=== PATIENT | male | born 1995 | race Caucasian/White ===

== ENCOUNTER 2016-07-25 19:51 | Emergency (ER) | payer SELFPAY ==
[2016-07-25 20:43] VITALS: BP 142/73
--- NOTE | 2016-07-25 21:28 | ED ---
GI/ HPI - HPI Summary HPI Summary: 20 yr old male with right testicular pain, much worse past two days and he has a lump in his testicle. The patient states that he has had pain intermittently for past year. His father had testicular cancer per this patient. His pain is 6 /10, localized to the right testicle. He states also slept with a new partner recently. Denies discharge or dysuria. - History of Current Complaint Chief Complaint: UCGU Time Seen by Provider: 07/25/16 21:17 Stated Complaint: personal - Allergy/Home Medications Allergies/Adverse Reactions: Allergies Allergy/AdvReac Type Severity Reaction Status Date / Time No Known Allergies Allergy Verified 04/03/16 16:27 PMH/Surg Hx/FS Hx/Imm Hx - Surgical History Surgery Procedure, Year, and Place: HERNIA--2017 Infectious Disease History: No Infectious Disease History: Denies: Traveled Outside the [place] in Last 30 Days - Family History Known Family History: Positive: Other - testicular cancer - Social History Alcohol Use: Rare Substance Use Type: Reports: None Smoking Status (MU): Former Smoker Type: Smokeless Tobacco Amount Used/How Often: 3 CANS PER WK Length of Time of Smoking/Using Tobacco: 8 YRS Review of Systems Negative: Fever, Chills Positive: pain - right testicle. Negative: dysuria, frequency All Other Systems Reviewed And Are Negative: Yes Physical Exam Triage Information Reviewed: Yes Vital Signs On Initial Exam: Initial Vitals Temp Pulse Resp BP Pulse Ox 100 F 76 20 142/73 100 07/25/16 20:36 07/25/16 20:36 07/25/16 20:36 07/25/16 20:36 07/25/16 20:36 Vital Signs Reviewed: Yes Appearance: Positive: Well-Appearing Skin: Positive: Warm, Skin Color Reflects Adequate Perfusion Eyes: Positive: Normal, EOMI ENT: Positive: Normal ENT inspection Neck: Positive: Supple Respiratory/Lung Sounds: Positive: Clear to Auscultation, Breath Sounds Present Cardiovascular: Positive: Pulses are Symmetrical in both Upper and Lower Extremities Abdomen Description: Positive: Nontender, Other: - laparotomy scar verticle on abdominal wall Male Genital Exam: Positive: testicular tenderness (R) - with lump palpable upper right testicle with tenderness. Negative: urethral discharge Musculoskeletal: Positive: Normal Neurological: Positive: Normal, Sensory/Motor Intact Diagnostics - Vital Signs Vital Signs Temp Pulse Resp BP Pulse Ox 07/25/16 20:36 100 F 76 20 142/73 100 - Laboratory Lab Statement: Any lab studies that have been ordered have been reviewed, and results considered in the medical decision making process. GIGU Course/Dx - Course Course Of Treatment: 20 yr old male with testicular pain and lump palpated. He has requested to go to [facility]. I have called and spoken to Dr Amber Noble who took report on this patient at [facility]. The patient refused medical transport. - Diagnoses Provider Diagnoses: Testicular pain, right Discharge - Discharge Plan Condition: Good Disposition: AGAINST MEDICAL ADVICE
== END 2016-07-25 21:30 | disposition left against medical advice (07) ==
LOC: UCCORT 19:51
DX: N50.811 Right testicular pain (principal); Z80.43 Family history of malignant neoplasm of testis; F17.220 Nicotine dependence, chewing tobacco, uncomplicated
CPT/HCPCS: 99212; G0463

== ENCOUNTER 2016-09-01 20:08 | Emergency (ER) | payer SELFPAY ==
[2016-09-01 20:57] VITALS: BP 138/71
[2016-09-01] MEDS ORDERED: Azithromycin TAB* 250 MG PO ONE (21:57)
[2016-09-01] MEDS ORDERED: cefTRIAXone VIAL(*) 250 MG VIAL IM ONE (21:57)
[2016-09-01] MEDS ORDERED: Lidocaine 1%* 5 ML VIAL ONE (22:04)
--- NOTE | 2016-09-01 22:15 | UC ---
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 2) UNPROTECTED SEX WITH PARTNER SEVERAL WEEKS AGO; INFORMED THAT PARTNER IS POSITIVE FOR G/C CHLAMYDIA. DURING LAST WEEK HAS HAD IRRITATION WITH URINATION AND THICK DISCHARGE FROM PENIS. - History of Current Complaint Chief Complaint: UCSkin Stated Complaint: BUMPS/ITCHINESS ON LEGS-POSS POISON HARVINDER Time Seen by Provider: 09/01/16 21:37 Hx Obtained From: Patient Onset/Duration: Gradual Onset, Lasting Weeks, Still Present Timing: Intermittent Severity Initially: Mild Severity Currently: Moderate Location: Penis - DISCHARGE Character: Burning Aggravating Factor(s): Voiding Alleviating Factor(s): Nothing Associated Signs And Symptoms: Positive: Penile Discharge. Negative: Back Pain , Fever, Hematuria, Dysuria, Constipation, Rectal Pain, Nausea, Vomiting(# Of Episodes =), Penile Swelling - Risk Factors Testicular Torsion: Negative - Allergies/Home Medications Allergies/Adverse Reactions: Allergies Allergy/AdvReac Type Severity Reaction Status Date / Time No Known Allergies Allergy Verified 09/01/16 20:57 PMH/Surg Hx/FS Hx/Imm Hx Previously Healthy: Yes - Surgical History Surgical History: Yes Surgery Procedure, Year, and Place: HERNIA--2017 - Family History Known Family History: Positive: Other - testicular cancer - Social History Occupation: Employed Full-time Lives: With Family Alcohol Use: Rare Substance Use Type: None Smoking Status (MU): Former Smoker Type: Smokeless Tobacco Amount Used/How Often: 3 CANS PER WK Length of Time of Smoking/Using Tobacco: 8 YRS When Did the Patient Quit Smoking/Using Tobacco: QUIT SMOKING 3-4 YRS AGO, CONT USE OF SMOKELESS TOBACCO Cessation Counseling: Patient Advised to Stop Review of Systems Constitutional: Negative Skin: Rash - RIGHT THIGH LEFT FOREARM, Other - PENILE DISCHARGE Eyes: Negative ENT: Negative Respiratory: Negative Cardiovascular: Negative Gastrointestinal: Negative Genitourinary: Negative Motor: Negative Neurovascular: Negative Musculoskeletal: Negative Neurological: Negative Psychological: Negative All Other Systems Reviewed And Are Negative: Yes Physical Exam Triage Information Reviewed: Yes Appearance: Well-Appearing, No Pain Distress, Well-Nourished Vital Signs: Initial Vital Signs Temp 97.8 F 09/01/16 20:52 Pulse 67 09/01/16 20:52 Resp 16 05/18/17 20:52 BP 138/71 09/01/16 20:52 Pulse Ox 100 09/01/16 20:52 Vital Signs Reviewed: Yes Eye Exam: Normal ENT Exam: Normal ENT: Positive: Normal ENT inspection, Hearing grossly normal, TMs normal Dental Exam: Normal Neck exam: Normal Neck: Positive: Supple, Nontender, No Lymphadenopathy Respiratory Exam: Normal Respiratory: Positive: Chest non-tender, Lungs clear, Normal breath sounds, No respiratory distress, No accessory muscle use Cardiovascular Exam: Normal Cardiovascular: Positive: RRR, No Murmur, Pulses Normal Abdominal Exam: Normal Abdomen Description: Positive: Nontender, No Organomegaly, Soft Musculoskeletal Exam: Normal Musculoskeletal: Positive: Strength Intact, ROM Intact Neurological Exam: Normal Psychological Exam: Normal Psychological: Positive: Normal Response To Family Skin: Positive: rashes - 2CM X 2CM RASH ON RIGHT THIGH ANTERIOR AND LEFT FOREARM - Additional Comments NO GENITAL OR SCROTAL LESIONS VISUALIZED. PATIENT ABLE TO EXPRESS DISCHARGE FROM GLANS OF PENIS; PATIENT PRODUCED URINE SAMPLE FOR G/C TEST Complaint Male Course/Dx - Differential Dx/Diagnosis Differential Diagnosis/HQI/PQRI: Prostatitis, Pyelonephritis, Urinary Tract Infection, Other - HIV; STD; SYPHILLIS Provider Diagnoses: 1) CONTACT DERMATITS LEFT FOREARM, RIGHT ANTERIOR LEG. 2) G /C CHLAMYDIA TREATMENT WITH STD TESTING Discharge - Discharge Plan Condition: Stable Disposition: HOME Prescriptions: Triamcinolone 0.1% CREAM (NF) [Kenalog 0.1% Cream (NF)] 1 applic TOPICAL TID #1 tube Patient Education Materials: Chlamydia (ED), Sexually Transmitted Diseases (ED) , Condom Use (ED), Gonorrhea (ED), Poison Harvinder (ED) Referrals: [facility] [Outside] No Primary Care Phys,NOPCP [Primary Care Provider] -
[2016-09-02 10:10] LABS: Rapid HIV INT CONT QC Line Present
[2016-09-02 10:11] LABS: Rapid HIV Kit Lot# F308002
[2016-09-02 10:15] LABS: Manual Entry Verification BM
--- NOTE | 2016-09-05 15:02 | UC ---
Progress - Progress Note Progress Note: NOTIFY PT OF RESULTS
== END 2016-09-01 22:32 | disposition home or self-care (01) ==
LOC: UCCORT 20:08
DX: L25.9 Unspecified contact dermatitis, unspecified cause (principal); R36.9 Urethral discharge, unspecified; Z20.2 Contact with and (suspected) exposure to infections with a predominantly sexual mode of transmission; Z11.3 Encounter for screening for infections with a predominantly sexual mode of transmission; Z11.4 Encounter for screening for human immunodeficiency virus [HIV]; F17.220 Nicotine dependence, chewing tobacco, uncomplicated
CPT/HCPCS: 36415; 86703; 87491; 87591; 96372; 99212; A9270-GY; G0463; J0696